=== PATIENT | male | born 1990 | race Caucasian/White ===

== ENCOUNTER 2017-09-09 00:40 | Emergency (ER) | payer SELFPAY ==
[~2017-09-09] VITALS: Ht 175.3 cm; Wt 69.9 kg
[2017-09-09 01:03] VITALS: BP 135/78
== END 2017-09-09 01:42 | disposition home or self-care (01) ==
LOC: ER 00:44
DX: S29.012A Strain of muscle and tendon of back wall of thorax, initial encounter (principal); V49.49XA Driver injured in collision with other motor vehicles in traffic accident, initial encounter; Y93.89 Activity, other specified; Y92.413 State road as the place of occurrence of the external cause; Y99.8 Other external cause status
CPT/HCPCS: 99282; A4606; Z7610